=== PATIENT | male | born 1975 | race Caucasian/White ===

== ENCOUNTER → 2024-03-01 14:52 | Outpatient (REF) | payer BC, SELFPAY | LOC: CLAB 14:52 | PROVIDERS: ATTENDING PHYSICIAN Surgery | DX: K64.4 Residual hemorrhoidal skin tags (principal) | CPT/HCPCS: 88304 ==

== ENCOUNTER → 2024-03-05 10:49 | Outpatient (REF) | payer BC, SELFPAY ==
[2024-03-05 11:25] LABS: % Basophils 0.9 % (0-2); % Eosinophils 6.5 % (0-6); % Immature Granulocytes 0.3 % (0-0.5); % Lymphocytes 30.1 % (20.5-51.1); % Monocytes 7.4 % (1.7-9.3); % Neutrophils 54.8 % (42.2-75.2); Absolute Basophils 0.1 10^3/uL (0-0.2); Absolute Eosinophils 0.8 10^3/uL (0-0.7); Absolute Lymphocytes 3.7 10^3/uL (1.2-3.4); Absolute Monocytes 0.9 10^3/uL (0.1-0.6); Absolute Neutrophils 6.6 10^3/uL (1.4-6.5); Hematocrit 48.6 % (39.0-52.0); Hemoglobin 17.2 g/dL (13.0-18.0); Mean Corp Hgb Conc. 35.4 g/dL (33.0-37.0); Mean Corpuscular Hgb 33.8 pg (27.0-31.0); Mean Corpuscular Volume 95.5 fL (80.0-94.0); Mean Platelet Volume 10.7 fL (7.4-10.4); Nucleated Red Blood Cells % 0 % (-); Platelet Count 304 10^3/uL (130-400); Red Blood Cell Count 5.09 10^6/uL (4.70-6.10); Red Cell Dist. Width 11.5 % (11.5-14.5); White Blood Cell Count 12.1 10^3/uL (4.8-10.8)
[2024-03-05 11:30] LABS: ALT (SGPT) 29 U/L (0-50); AST (SGOT) 24 U/L (17-59); Albumin 4.4 g/dl (3.5-5.0); Alkaline Phosphatase 89 U/L (38-126); Blood Urea Nitrogen 19 mg/dl (9-20); Calcium 9.9 mg/dl (8.4-10.2); Carbon Dioxide 26 mmol/L (22-30); Chloride 104 mmol/L (98-107); Glucose 96 mg/dl (70-99); HDL Cholesterol 41 mg/dl; LDL Cholesterol, Calculated 93 mg/dl; Potassium 4.9 mmol/L (3.5-5.1); Sodium 140 mmol/L (135-145); Total Bilirubin 1.6 mg/dl (0.2-1.3); Total Cholesterol 193 mg/dl (50-199); Total Protein 7.3 g/dl (6.3-8.2); Triglyceride 296 mg/dl (10-149); Very Low Density Lipoprotein 59 mg/dl (0-30); eGFR > 60.00
[2024-03-05 11:59] LABS: PSA, Total - Screen 3.98 ng/ml (0.0-4.0); TSH 2.09 uIU/ml (0.47-4.68)
== END ==
LOC: REG 10:49
PROVIDERS: ATTENDING PHYSICIAN Physician Assistant Medical
DX: Z00.00 Encounter for general adult medical examination without abnormal findings (principal); R35.1 Nocturia
CPT/HCPCS: 36415; 80053; 80061; 84443; 85025; G0103

== ENCOUNTER → 2024-05-01 10:14 | Outpatient (REF) | payer BC, SELFPAY ==
[2024-05-01 11:32] LABS: Vitamin D, 25-OH*** 30.1 ng/mL (30-80)
[2024-05-01 12:21] LABS: Folate 11.5 ng/ml (2.76-20); Vitamin B12 281 pg/ml (239-931)
== END ==
LOC: REG 10:14
PROVIDERS: ATTENDING PHYSICIAN Physician Assistant Medical
DX: R53.83 Other fatigue (principal)
CPT/HCPCS: 36415; 82306; 82607; 82746

== ENCOUNTER → 2024-09-29 06:20 | Day surgery (SDC) | payer BC, SELFPAY | LOC: GI 06:20 | PROVIDERS: ATTENDING PHYSICIAN Surgery | PROC: 0DBP8ZX Excision of Rectum, Via Natural or Artificial Opening Endoscopic, Diagnostic (ICD-10-PCS; 2024-09-29) | PROC: 0DBL8ZX Excision of Transverse Colon, Via Natural or Artificial Opening Endoscopic, Diagnostic (ICD-10-PCS; 2024-09-29) | PROC: 0DBK8ZX Excision of Ascending Colon, Via Natural or Artificial Opening Endoscopic, Diagnostic (ICD-10-PCS; 2024-09-29) | PROC: 0DBN8ZX Excision of Sigmoid Colon, Via Natural or Artificial Opening Endoscopic, Diagnostic (ICD-10-PCS; 2024-09-29) | DX: Z12.11 Encounter for screening for malignant neoplasm of colon (principal); D12.2 Benign neoplasm of ascending colon; D12.3 Benign neoplasm of transverse colon; D12.5 Benign neoplasm of sigmoid colon; D12.8 Benign neoplasm of rectum; K57.30 Diverticulosis of large intestine without perforation or abscess without bleeding | CPT/HCPCS: 45380; 88305 ==